=== PATIENT | female | born 1995 | race Caucasian/White ===

== ENCOUNTER 2017-04-19 17:58 | Emergency (ER) | payer OTHER ==
[~2017-04-19] VITALS: Ht 162.6 cm; Wt 63.5 kg
[2017-04-19] MEDS ORDERED: VENTOLIN HFA 1818 GM INH (18:08)
[2017-04-19] MEDS ORDERED: ASMANEX110 MC1 INH (18:08)
[2017-04-19 21:10] VITALS: BP 99/61
== END 2017-04-19 21:11 | disposition home or self-care (01) ==
LOC: M.ERS 17:58
DX: S91.331A Puncture wound without foreign body, right foot, initial encounter (principal); J45.909 Unspecified asthma, uncomplicated; Z77.22 Contact with and (suspected) exposure to environmental tobacco smoke (acute) (chronic); W45.0XXA Nail entering through skin, initial encounter; Y93.89 Activity, other specified; Y92.89 Other specified places as the place of occurrence of the external cause; Y99.8 Other external cause status

== ENCOUNTER 2018-02-21 11:16 | Emergency (ER) | payer OTHER ==
[~2018-02-21] VITALS: Ht 162.6 cm; Wt 70.3 kg
[~2018-02-21 11:16] MED LIST: ASMANEX110 MC1 INH; VENTOLIN HFA 1818 GM INH
[2018-02-21] MEDS ORDERED: VENTOLIN HFA 1818 GM INH (12:17)
[2018-02-21] MEDS ORDERED: ALBUTEROL2.5 MG/31 INH (12:17)
[2018-02-21] MEDS ORDERED: PREDNISONE50 MG PO (12:17)
[2018-02-21 12:37] VITALS: BP 124/70
== END 2018-02-21 12:38 | disposition home or self-care (01) ==
LOC: M.ERS 11:16
DX: J45.901 Unspecified asthma with (acute) exacerbation (principal); Z76.0 Encounter for issue of repeat prescription; Z77.22 Contact with and (suspected) exposure to environmental tobacco smoke (acute) (chronic)